=== PATIENT | male | born 1990 | race Two or more races ===

== ENCOUNTER 2016-11-19 05:58 | Emergency (ER) | payer OTHER ==
[~2016-11-19] VITALS: Ht 170.2 cm; Wt 106.6 kg
[2016-11-19 06:04] VITALS: BP 148/93
--- NOTE | 2016-11-19 06:05 | NUR ---
To bed 8 a 26 yo male bibself with c/of cough and congestion since wednesday. Patient is aaox4, ambulatory. Afebrile. Breathing even and unlabored. Skin warm and dry to touch. Gowned. Awaiting for er md collier.
--- NOTE | 2016-11-19 06:20 | NUR ---
Dr Marin at bedside for eval.
[2016-11-19] MEDS ORDERED: IBUPROFEN 600 MG TABLET PO ONE ×2 (07:00)
== END 2016-11-19 07:07 | disposition home or self-care (01) ==
LOC: ER 06:02
DX: J06.9 Acute upper respiratory infection, unspecified (principal)
CPT/HCPCS: 71010-TC; A4606; Z7610

== ENCOUNTER 2017-08-30 21:23 | Emergency (ER) | payer OTHER ==
[~2017-08-30] VITALS: Ht 170.2 cm; Wt 108.9 kg
--- NOTE | 2017-08-30 23:01 | NUR ---
PT RECIEVED FROM HOME BIB SELF C/O CHEST PAIN NONRADIATING X1 WEEK 01/23 "LIKE I WORKED OUT WRONG". NO SOB NOTED AT THIS TIME WITH CLEAR LUNG SOUNDS. VSS NAD A/OX4
--- NOTE | 2017-08-30 23:03 | NUR ---
EKG AT BEDSIDE
[2017-08-30] MEDS ORDERED: ASPIRIN 81 MG TAB.CHEW ONE (23:20)
--- NOTE | 2017-08-30 23:20 | NUR ---
LAB AT BEDSIDE FOR BLOOW DRAW
--- NOTE | 2017-08-30 23:28 | NUR ---
AEROBICS TEACHER AT BEDSIDE
[2017-08-30] MEDS ORDERED: ASPIRIN 81 MG TAB.CHEW PO ONE (23:30)
[2017-08-30 23:34] LABS: BASOPHILS # (AUTO) 0.1 /CMM (0.0-0.2); EOSINOPHILS # (AUTO) 0.3 /CMM (0.0-0.7); EOSINOPHILS % (AUTO) 3.2 % (0.0-6.0); HEMATOCRIT 40 % (39-51); LYMPHOCYTES # (AUTO) 3.5 /CMM (0.8-4.8); LYMPHOCYTES % (AUTO) 44.6 % (20.0-44.0); MEAN CORPUSCULAR HEMOGLOBIN 32 PG (26.0-33.0); MEAN CORPUSCULAR HGB CONC 35 g/dl (31.0-36.0); MEAN CORPUSCULAR VOLUME 92 fL (80-96); MONOCYTES # (AUTO) 0.7 /CMM (0.1-1.30); MONOCYTES % (AUTO) 8.3 % (2.0-12.0); NEUTROPHILS # (AUTO) 3.4 /CMM (1.8-8.9); NEUTROPHILS % (AUTO) 42.9 % (43.0-81.0); PLATELET COUNT (AUTO) 253 /CMM (150-450); RDW COEFFICIENT OF VARIATION 12.4 (11.5-15.0); RED BLOOD CELL COUNT(AUTO) 4.42 MIL/uL (4.5-6.0); WHITE BLOOD COUNT (AUTO) 7.9 K/uL (4.3-11.0)
[2017-08-30 23:45] LABS: CARBON DIOXIDE 24 mmol/L (21-32); CHLORIDE 108 mmol/L (98-107); CREATININE 0.9 mg/dL (0.6-1.3); GLUCOSE 113 mg/dL (74-106); POTASSIUM 3.9 mmol/L (3.5-5.1); SODIUM SERUM 142 mmol/L (136-145); UREA NITROGEN, BLOOD 13 mg/dL (7-18)
[2017-08-30 23:48] LABS: INR 0.93 (0.87-1.13)
[2017-08-30 23:58] LABS: TROPONIN I < 0.017 ng/mL (0.00-0.056)
[2017-08-31 00:01] LABS: ALANINE AMINOTRANSFERASE 57 U/L (12-78); ALKALINE PHOSPHATASE 95 U/L (46-116); ASPARTATE AMINOTRANSFERASE 17 U/L (15-37); BILIRUBIN,TOTAL 0.2 mg/dL (0.2-1.0); TOTAL PROTEIN, SERUM 6.8 g/dL (6.4-8.2)
[2017-08-31 00:05] LABS: B-TYPE NATRIURETIC PEPTIDE 5 PG/ML (0-125)
[2017-08-31 00:24] VITALS: BP 143/77
== END 2017-08-31 00:25 | disposition home or self-care (01) ==
LOC: ER 21:24
DX: R07.89 Other chest pain (principal); F17.200 Nicotine dependence, unspecified, uncomplicated
CPT/HCPCS: 36415; 71045; 80048; 80076; 83880; 84484; 85025; 85730; 93005; 99285; 99406; A4606; Z7610